=== PATIENT | female | born 1955 | race Asian ===

== ENCOUNTER 2023-01-04 16:01 | Inpatient (IN) | payer OTHER, MEDICAID ==
[~2023-01-04] VITALS: Ht 167.6 cm; Wt 56.8 kg
[2023-01-04] MEDS: ENOXAPARIN SODIUM 100 MG/ML SYRINGE SUBCUT SCH (03:20)
[2023-01-04] MEDS: MAGNESIUM OXIDE 400 MG TABLET PO SCH (03:22)
[2023-01-04 16:01] VITALS: BP_SYST 116
[2023-01-04] MEDS ORDERED: ACETAMINOPHEN 500 MG TABLET PO ONE (16:30)
[2023-01-04] MEDS ORDERED: IPRATROPIUM BROM 0.5 MG/2.5 ML VIAL.NEB (ATROVENT) INH ONE ×2 (17:09→17:15)
[2023-01-04] MEDS ORDERED: ALBUTEROL SULFATE 0.083% 2.5 MG/3 ML VIAL.NEB INH ONE ×2 (17:09→17:15)
[2023-01-04 17:39] LABS: BASOPHILS % (AUTO) 0.1 % (0.0-2.0); HEMATOCRIT 34.5 % (36-48); HEMOGLOBIN 11.4 g/dL (12.0-16.0); LYMPHOCYTES # (AUTO) 0.1 K/uL (1.0-5.5); LYMPHOCYTES % (AUTO) 1.1 % (20.5-51.5); MEAN CORPUSCULAR HEMOGLOBIN 28 pg (27-31); MEAN CORPUSCULAR HGB CONC 33 % (32-36); MEAN CORPUSCULAR VOLUME 86 fL (79.0-98.0); MONOCYTES # (AUTO) 0.4 K/uL (0.0-1.0); MONOCYTES % (AUTO) 3.3 % (1.7-9.3); NEUTROPHILS # (AUTO) 12.8 K/uL (1.8-7.7); NEUTROPHILS % (AUTO) 95.5 % (40.0-70.0); PLATELET COUNT (AUTO) 165 K/uL (130-430); RED BLOOD CELL COUNT(AUTO) 4.02 MIL/uL (4.2-6.2); RED CELL DISTRIBUTION WIDTH 14.9 % (9.0-15.0); WHITE BLOOD COUNT (AUTO) 13.4 K/uL (4.8-10.8)
[2023-01-04 17:51] LABS: ANION GAP 5 (5-15); CHLORIDE 101 mmol/L (98-107); CREATININE 0.82 mg/dL (0.55-1.30); GFR AFRICAN AMERICAN 89 mL/min (>90); GLUCOSE 145 mg/dL (70-99); INR 1.3 (0.8-1.2); PROTHROMBIN TIME 13.2 SECS (9.5-12.5); UREA NITROGEN, BLOOD 21 mg/dL (8-21)
[2023-01-04 17:58] LABS: ALANINE AMINOTRANSFERASE 24 U/L (12-78); ALBUMIN 2.8 g/dL (3.4-4.8); ASPARTATE AMINOTRANSFERASE 30 U/L (10-37); TOTAL BILIRUBIN 0.5 mg/dL (0.0-1.0)
[2023-01-04] MEDS ORDERED: PIPERACILLIN/TAZO 3.375 GM in NS 50 ML IV ONE (18:30)
[2023-01-04] MEDS ORDERED: PIPERACILLIN/TAZOBACTAM 3.375 GM/VIAL (ZOSYN) IV ONE (18:33)
[2023-01-04] MEDS ORDERED: ASPIRIN 325 MG TABLET PO ONE (19:30)
[2023-01-04] MEDS ORDERED: AZITHROMYCIN 500 MG in NS 250 ML IV ONE (21:30)
[2023-01-04] MEDS ORDERED: DEXAMETHASONE SOD PHOSPHATE 10 MG/ML VIAL IVP ONE (21:30)
[2023-01-04] MEDS ORDERED: HEPARIN SODIUM,PORCINE 5,000 UNITS/ML VIAL SUBCUT SCH (23:15)
[2023-01-04] MEDS ORDERED: ACETAMINOPHEN 325 MG TABLET PO PRN (23:30)
[2023-01-04] MEDS ORDERED: FAMOTIDINE 20 MG TABLET PO ONE (23:30)
[2023-01-05] VITALS (9 sets, daily range): BP systolic 100–137
[2023-01-05] MEDS: DEXAMETHASONE SOD PHOSPHATE 10 MG/ML VIAL IVP SCH ×2 (02:23→23:07)
[2023-01-05] MEDS ORDERED: IPRATROPIUM/ALBUTEROL SULFATE 3 ML AMPUL.NEB (DUONEB) INH SCH (03:00)
[2023-01-05] MEDS ORDERED: AZITHROMYCIN 500 MG/VIAL (ZITHROMAX) IV ONE (03:21)
[2023-01-05] MEDS ORDERED: PIPERACILLIN/TAZOBACTAM 3.375 GM/VIAL (ZOSYN) IV ONE (03:21)
[2023-01-05] MEDS: AZITHROMYCIN 500 MG in NS 250 ML IV SCH ×2 (04:09→23:07)
[2023-01-05 05:39] LABS: HEMATOCRIT 31.4 % (36-48); HEMOGLOBIN 10.4 g/dL (12.0-16.0); LYMPHOCYTES # (AUTO) 0.3 K/uL (1.0-5.5); LYMPHOCYTES % (AUTO) 4.9 % (20.5-51.5); MEAN CORPUSCULAR HEMOGLOBIN 28 pg (27-31); MEAN CORPUSCULAR HGB CONC 33 % (32-36); MEAN CORPUSCULAR VOLUME 85 fL (79.0-98.0); MONOCYTES # (AUTO) 0.2 K/uL (0.0-1.0); MONOCYTES % (AUTO) 3.3 % (1.7-9.3); NEUTROPHILS # (AUTO) 5.7 K/uL (1.8-7.7); NEUTROPHILS % (AUTO) 91.8 % (40.0-70.0); PLATELET COUNT (AUTO) 135 K/uL (130-430); RED BLOOD CELL COUNT(AUTO) 3.68 MIL/uL (4.2-6.2); RED CELL DISTRIBUTION WIDTH 14.8 % (9.0-15.0); WHITE BLOOD COUNT (AUTO) 6.2 K/uL (4.8-10.8)
[2023-01-05] MEDS: PIPERACILLIN/TAZO 3.375/DEX-IS 50 ML IV SCH ×4 (07:01→23:51)
[2023-01-05] MEDS: ALBUTEROL MDI INHALATION 8 GM INH INH SCH ×4 (08:07→23:03)
[2023-01-05 08:28] LABS: ALBUMIN 2.3 g/dL (3.4-4.8); CALCIUM 7.9 mg/dL (8.4-11.0); CREATININE 0.58 mg/dL (0.55-1.30); TOTAL BILIRUBIN 0.4 mg/dL (0.0-1.0)
[2023-01-05] MEDS: ASPIRIN 81 MG TABLET(ECOTRIN) PO SCH (09:00)
[2023-01-05] MEDS: ENOXAPARIN SODIUM 100 MG/ML SYRINGE SUBCUT SCH ×2 (09:19→20:13)
[2023-01-05] MEDS: MAGNESIUM OXIDE 400 MG TABLET PO SCH ×2 (09:20→20:12)
[2023-01-05] MEDS: FAMOTIDINE 20 MG TABLET PO SCH ×2 (09:29→20:12)
[2023-01-05] MEDS: SILDENAFIL CITRATE 20 MG TABLET PO SCH ×3 (09:29→20:12)
[2023-01-05] MEDS: ASCORBIC ACID 500 MG TABLET PO SCH ×2 (09:30→20:12)
[2023-01-05] MEDS: CHOLECALCIFEROL (VITAMIN D3) 5,000 UNIT TABLET PO SCH (09:30)
[2023-01-05] MEDS ORDERED: OMEP20CA15 PO (12:19)
[2023-01-05] MEDS ORDERED: SULF1TAB47 PO (12:19)
[2023-01-05] MEDS ORDERED: APIX5TAB PO (13:57)
[2023-01-05] MEDS ORDERED: PRED5TAB PO (14:01)
[2023-01-05] MEDS ORDERED: TADA20TA PO (14:01)
[2023-01-05] MEDS ORDERED: AUG875 PO (14:03)
[2023-01-05] MEDS: ACETAMINOPHEN 325 MG TABLET PO PRN ×2 (15:56→22:58)
[2023-01-05 21:23] LABS: BILIRUBIN,URINE NEGATIVE (NEGATIVE); BLOOD, URINE NEGATIVE (NEGATIVE); CLARITY/URINE CLEAR (CLEAR); COLOR,URINE YELLOW (YELLOW); GLUCOSE,URINE NEGATIVE (NEGATIVE); KETONES,URINE TRACE (NEGATIVE); LEUKOCYTE ESTERASE ,URINE NEGATIVE (NEGATIVE); NITRITE, URINE NEGATIVE (NEGATIVE); PROTEIN URINE 1+ (NEGATIVE); UROBILINOGEN,URINE 0.2 (0.2-1.0)
[2023-01-05 21:30] LABS: BACTERIA,URINE FEW /HPF (None Seen); MUCUS,URINE None Seen /LPF (None Seen); RBC,URINE 0-3 /HPF (0-3); WBC,URINE 0-3 /HPF (0-3)
[2023-01-06] VITALS (24 sets, daily range): BP systolic 89–152
[2023-01-06] MEDS ORDERED: METHYLPREDNISOLONE SOD SUCC 40 MG/ML VIAL IVP ONE (00:40)
[2023-01-06] MEDS ORDERED: CEFEPIME 2 GM in D5W 100 ML IV ONE (00:45)
[2023-01-06] MEDS ORDERED: FUROSEMIDE 20 MG/2 ML VIAL IVP ONE ×2 (00:45→10:45)
[2023-01-06] MEDS ORDERED: VANCOMYCIN HCL 1 GM/NS PREMIX 250 ML IV ONE (00:45)
[2023-01-06] MEDS ORDERED: CEFEPIME 2 GM/VIAL (MAXIPIME) ONE (00:59)
[2023-01-06] MEDS ORDERED: VANCOMYCIN HCL 1000 MG/VIAL IV ONE (00:59)
[2023-01-06 02:35] LABS: BILIRUBIN,URINE NEGATIVE (NEGATIVE); CLARITY/URINE CLEAR (CLEAR); COLOR,URINE YELLOW (YELLOW); GLUCOSE,URINE NEGATIVE (NEGATIVE); KETONES,URINE NEGATIVE (NEGATIVE); LEUKOCYTE ESTERASE ,URINE NEGATIVE (NEGATIVE); NITRITE, URINE NEGATIVE (NEGATIVE); PROTEIN URINE TRACE (NEGATIVE); UROBILINOGEN,URINE 0.2 (0.2-1.0)
[2023-01-06 02:36] LABS: BLOOD, URINE TRACE (NEGATIVE)
[2023-01-06 02:43] LABS: URINE SULFO SALICYLIC ACID TRACE (NEGATIVE)
[2023-01-06] MEDS: ALBUTEROL MDI INHALATION 8 GM INH INH SCH ×7 (02:43→22:53)
[2023-01-06 05:22] LABS: BASOPHILS % (AUTO) 0.1 % (0.0-2.0); HEMATOCRIT 31.1 % (36-48); HEMOGLOBIN 10.4 g/dL (12.0-16.0); LYMPHOCYTES # (AUTO) 0.1 K/uL (1.0-5.5); MEAN CORPUSCULAR HEMOGLOBIN 29 pg (27-31); MEAN CORPUSCULAR HGB CONC 33 % (32-36); MEAN CORPUSCULAR VOLUME 86 fL (79.0-98.0); MONOCYTES # (AUTO) 0.2 K/uL (0.0-1.0); MONOCYTES % (AUTO) 1.9 % (1.7-9.3); NEUTROPHILS # (AUTO) 8.9 K/uL (1.8-7.7); PLATELET COUNT (AUTO) 167 K/uL (130-430); RED BLOOD CELL COUNT(AUTO) 3.63 MIL/uL (4.2-6.2); RED CELL DISTRIBUTION WIDTH 15.2 % (9.0-15.0); WHITE BLOOD COUNT (AUTO) 9.2 K/uL (4.8-10.8)
[2023-01-06 06:04] LABS: ALBUMIN 2.4 g/dL (3.4-4.8); CALCIUM 8.2 mg/dL (8.4-11.0); CREATININE 0.74 mg/dL (0.55-1.30); THYROID STIMULATING HORMONE 1.07 uIu/mL (0.34-4.82); TOTAL BILIRUBIN 0.6 mg/dL (0.0-1.0)
[2023-01-06 07:06] LABS: INR 1.1 (0.8-1.2)
[2023-01-06] MEDS ORDERED: iohexoL 350 mgI/mL, 100 ML INFUS..BTL IV ONE (07:41)
[2023-01-06] MEDS: MEROPENEM 1 GM in NS 100 ML IV SCH ×3 (08:00→21:09)
[2023-01-06] MEDS: METHYLPREDNISOLONE SOD SUCC 40 MG/ML VIAL IVP SCH ×3 (08:25→21:09)
[2023-01-06] MEDS ORDERED: CEFEPIME 2 GM in D5W 100 ML IV SCH (09:00)
[2023-01-06] MEDS: ASPIRIN 81 MG TABLET(ECOTRIN) PO SCH (09:14)
[2023-01-06] MEDS: FAMOTIDINE 20 MG TABLET PO SCH ×2 (09:14→21:08)
[2023-01-06] MEDS: SILDENAFIL CITRATE 20 MG TABLET PO SCH ×3 (09:14→21:08)
[2023-01-06] MEDS: MAGNESIUM OXIDE 400 MG TABLET PO SCH ×2 (09:14→21:07)
[2023-01-06] MEDS: CHOLECALCIFEROL (VITAMIN D3) 5,000 UNIT TABLET PO SCH (09:14)
[2023-01-06] MEDS: ENOXAPARIN SODIUM 100 MG/ML SYRINGE SUBCUT SCH ×2 (09:14→21:09)
[2023-01-06] MEDS: ASCORBIC ACID 500 MG TABLET PO SCH ×2 (09:14→21:08)
[2023-01-06] MEDS ORDERED: BARICITINIB -Non-Formulary 2 MG TABLET PO ONE (16:00)
[2023-01-06] MEDS: VANCOMYCIN HCL 500 MG in NS 100 ML IV SCH (17:12)
[2023-01-07] VITALS (21 sets, daily range): BP systolic 96–121
[2023-01-07] MEDS: ALBUTEROL MDI INHALATION 8 GM INH INH SCH ×6 (03:30→20:02)
[2023-01-07 05:16] LABS: BASOPHILS % (AUTO) 0.1 % (0.0-2.0); HEMATOCRIT 32.2 % (36-48); HEMOGLOBIN 10.7 g/dL (12.0-16.0); LYMPHOCYTES # (AUTO) 0.7 K/uL (1.0-5.5); LYMPHOCYTES % (AUTO) 8.6 % (20.5-51.5); MEAN CORPUSCULAR HEMOGLOBIN 29 pg (27-31); MEAN CORPUSCULAR HGB CONC 33 % (32-36); MEAN CORPUSCULAR VOLUME 85 fL (79.0-98.0); MONOCYTES # (AUTO) 0.3 K/uL (0.0-1.0); MONOCYTES % (AUTO) 3.3 % (1.7-9.3); NEUTROPHILS # (AUTO) 6.8 K/uL (1.8-7.7); PLATELET COUNT (AUTO) 171 K/uL (130-430); RED BLOOD CELL COUNT(AUTO) 3.77 MIL/uL (4.2-6.2); RED CELL DISTRIBUTION WIDTH 14.8 % (9.0-15.0); WHITE BLOOD COUNT (AUTO) 7.8 K/uL (4.8-10.8)
[2023-01-07 05:22] LABS: CALCIUM 8.2 mg/dL (8.4-11.0); CREATININE 0.59 mg/dL (0.55-1.30)
[2023-01-07 05:29] LABS: ALBUMIN 2.2 g/dL (3.4-4.8); TOTAL BILIRUBIN 0.5 mg/dL (0.0-1.0)
[2023-01-07] MEDS: MEROPENEM 1 GM in NS 100 ML IV SCH ×3 (06:05→21:47)
[2023-01-07] MEDS: VANCOMYCIN HCL 500 MG in NS 100 ML IV SCH ×2 (06:05→16:18)
[2023-01-07] MEDS: METHYLPREDNISOLONE SOD SUCC 40 MG/ML VIAL IVP SCH ×3 (06:06→21:47)
[2023-01-07] MEDS: MAGNESIUM OXIDE 400 MG TABLET PO SCH ×2 (10:39→21:48)
[2023-01-07] MEDS: ASPIRIN 81 MG TABLET(ECOTRIN) PO SCH (10:39)
[2023-01-07] MEDS: SILDENAFIL CITRATE 20 MG TABLET PO SCH ×3 (10:41→21:48)
[2023-01-07] MEDS: FAMOTIDINE 20 MG TABLET PO SCH ×2 (10:41→21:48)
[2023-01-07] MEDS: BARICITINIB -Non-Formulary 2 MG TABLET PO SCH (10:41)
[2023-01-07] MEDS: ASCORBIC ACID 500 MG TABLET PO SCH ×2 (10:42→21:48)
[2023-01-07] MEDS: CHOLECALCIFEROL (VITAMIN D3) 5,000 UNIT TABLET PO SCH (10:47)
[2023-01-07] MEDS: ENOXAPARIN SODIUM 100 MG/ML SYRINGE SUBCUT SCH ×2 (10:48→21:00)
[2023-01-07] MEDS ORDERED: MEGESTROL ACETATE 400 MG/10 ML UDC PO ONE (14:45)
[2023-01-07] MEDS ORDERED: POTASSIUM CHLORIDE 20 MEQ TAB.PRT.SR PO ONE (14:45)
[2023-01-07] MEDS ORDERED: MULTIVITS,CA,MINERALS/IRON/FA 1 TABLET PO ONE (15:15)
[2023-01-07] MEDS: MIRTAZAPINE 15 MG TABLET PO SCH (21:00)
[2023-01-07] MEDS: DOXYCYCLINE HYCLATE 100 MG CAPSULE PO SCH (21:55)
[2023-01-08] VITALS (21 sets, daily range): BP systolic 105–141
[2023-01-08] MEDS: ALBUTEROL MDI INHALATION 8 GM INH INH SCH ×6 (04:07→23:30)
[2023-01-08 05:31] LABS: BASOPHILS % (AUTO) 0.1 % (0.0-2.0); HEMATOCRIT 30.2 % (36-48); HEMOGLOBIN 10.1 g/dL (12.0-16.0); LYMPHOCYTES # (AUTO) 0.5 K/uL (1.0-5.5); LYMPHOCYTES % (AUTO) 7.8 % (20.5-51.5); MEAN CORPUSCULAR HEMOGLOBIN 29 pg (27-31); MEAN CORPUSCULAR HGB CONC 34 % (32-36); MEAN CORPUSCULAR VOLUME 86 fL (79.0-98.0); MONOCYTES # (AUTO) 0.2 K/uL (0.0-1.0); MONOCYTES % (AUTO) 3.4 % (1.7-9.3); NEUTROPHILS # (AUTO) 5.5 K/uL (1.8-7.7); NEUTROPHILS % (AUTO) 88.7 % (40.0-70.0); PLATELET COUNT (AUTO) 189 K/uL (130-430); RED BLOOD CELL COUNT(AUTO) 3.52 MIL/uL (4.2-6.2); RED CELL DISTRIBUTION WIDTH 14.9 % (9.0-15.0); WHITE BLOOD COUNT (AUTO) 6.2 K/uL (4.8-10.8)
[2023-01-08 06:00] LABS: ALBUMIN 2.1 g/dL (3.4-4.8); CALCIUM 7.9 mg/dL (8.4-11.0); CREATININE 0.59 mg/dL (0.55-1.30); TOTAL BILIRUBIN 0.4 mg/dL (0.0-1.0)
[2023-01-08] MEDS: VANCOMYCIN HCL 500 MG in NS 100 ML IV SCH (06:00)
[2023-01-08] MEDS: METHYLPREDNISOLONE SOD SUCC 40 MG/ML VIAL IVP SCH ×3 (06:08→22:24)
[2023-01-08] MEDS: MEROPENEM 1 GM in NS 100 ML IV SCH ×3 (06:09→22:24)
[2023-01-08] MEDS: ASPIRIN 81 MG TABLET(ECOTRIN) PO SCH (08:57)
[2023-01-08] MEDS: ASCORBIC ACID 500 MG TABLET PO SCH ×2 (08:57→22:21)
[2023-01-08] MEDS: DOXYCYCLINE HYCLATE 100 MG CAPSULE PO SCH ×2 (08:57→22:21)
[2023-01-08] MEDS: SILDENAFIL CITRATE 20 MG TABLET PO SCH ×3 (08:58→22:20)
[2023-01-08] MEDS: FAMOTIDINE 20 MG TABLET PO SCH ×2 (08:58→22:21)
[2023-01-08] MEDS: POTASSIUM CHLORIDE 20 MEQ TAB.PRT.SR PO SCH (08:58)
[2023-01-08] MEDS: MEGESTROL ACETATE 400 MG/10 ML UDC PO SCH (08:58)
[2023-01-08] MEDS: ENOXAPARIN SODIUM 100 MG/ML SYRINGE SUBCUT SCH (08:59)
[2023-01-08] MEDS: MAGNESIUM OXIDE 400 MG TABLET PO SCH ×2 (08:59→22:21)
[2023-01-08] MEDS: BARICITINIB -Non-Formulary 2 MG TABLET PO SCH (09:08)
[2023-01-08] MEDS: MULTIVITS,CA,MINERALS/IRON/FA 1 TABLET PO SCH (09:08)
[2023-01-08] MEDS: CHOLECALCIFEROL (VITAMIN D3) 5,000 UNIT TABLET PO SCH (09:09)
[2023-01-08] MEDS: MIRTAZAPINE 15 MG TABLET PO SCH (22:20)
[2023-01-08] MEDS: ENOXAPARIN SODIUM 60 MG/0.6 ML SYRINGE SUBCUT SCH (22:20)
[2023-01-09] MEDS ORDERED: MIRTAZAPINE 15 MG TABLET PO ONE
[2023-01-09 01:23] VITALS: BP_SYST 122
[2023-01-09] MEDS: ALBUTEROL MDI INHALATION 8 GM INH INH SCH ×6 (03:00→23:30)
[2023-01-09] MEDS: MEROPENEM 1 GM in NS 100 ML IV SCH ×3 (05:40→21:36)
[2023-01-09] MEDS: METHYLPREDNISOLONE SOD SUCC 40 MG/ML VIAL IVP SCH ×3 (05:41→21:40)
[2023-01-09 06:01] LABS: BASOPHILS % (AUTO) 0.5 % (0.0-2.0); HEMATOCRIT 31.5 % (36-48); HEMOGLOBIN 10.5 g/dL (12.0-16.0); LYMPHOCYTES # (AUTO) 0.5 K/uL (1.0-5.5); LYMPHOCYTES % (AUTO) 5.6 % (20.5-51.5); MEAN CORPUSCULAR HEMOGLOBIN 29 pg (27-31); MEAN CORPUSCULAR HGB CONC 33 % (32-36); MEAN CORPUSCULAR VOLUME 86 fL (79.0-98.0); MONOCYTES # (AUTO) 0.2 K/uL (0.0-1.0); NEUTROPHILS # (AUTO) 7.6 K/uL (1.8-7.7); NEUTROPHILS % (AUTO) 90.9 % (40.0-70.0); PLATELET COUNT (AUTO) 219 K/uL (130-430); RED BLOOD CELL COUNT(AUTO) 3.66 MIL/uL (4.2-6.2); RED CELL DISTRIBUTION WIDTH 15.1 % (9.0-15.0); WHITE BLOOD COUNT (AUTO) 8.3 K/uL (4.8-10.8)
[2023-01-09 06:19] LABS: ALBUMIN 2.1 g/dL (3.4-4.8); CALCIUM 8.1 mg/dL (8.4-11.0); CREATININE 0.52 mg/dL (0.55-1.30); TOTAL BILIRUBIN 0.4 mg/dL (0.0-1.0)
[2023-01-09 06:30] LABS: TOTAL IRON BIND. CAPACITY 188 ug/dL (250-450)
[2023-01-09 08:45] VITALS: BP_SYST 132
[2023-01-09] MEDS: MEGESTROL ACETATE 400 MG/10 ML UDC PO SCH (09:06)
[2023-01-09] MEDS: MAGNESIUM OXIDE 400 MG TABLET PO SCH ×2 (09:07→21:36)
[2023-01-09] MEDS: ASPIRIN 81 MG TABLET(ECOTRIN) PO SCH (09:07)
[2023-01-09] MEDS: FAMOTIDINE 20 MG TABLET PO SCH ×2 (09:08→21:36)
[2023-01-09] MEDS: CHOLECALCIFEROL (VITAMIN D3) 5,000 UNIT TABLET PO SCH (09:08)
[2023-01-09] MEDS: SILDENAFIL CITRATE 20 MG TABLET PO SCH ×3 (09:08→21:36)
[2023-01-09] MEDS: POTASSIUM CHLORIDE 20 MEQ TAB.PRT.SR PO SCH (09:08)
[2023-01-09] MEDS: ASCORBIC ACID 500 MG TABLET PO SCH ×2 (09:09→21:36)
[2023-01-09] MEDS: DOXYCYCLINE HYCLATE 100 MG CAPSULE PO SCH ×2 (09:09→21:36)
[2023-01-09] MEDS: MULTIVITS,CA,MINERALS/IRON/FA 1 TABLET PO SCH (09:09)
[2023-01-09] MEDS: ENOXAPARIN SODIUM 60 MG/0.6 ML SYRINGE SUBCUT SCH ×2 (09:11→21:36)
[2023-01-09] MEDS: BARICITINIB -Non-Formulary 2 MG TABLET PO SCH (09:24)
[2023-01-09 12:00] VITALS: BP_SYST 121
[2023-01-09 18:24] VITALS: BP_SYST 126
[2023-01-09 20:00] VITALS: BP_SYST 122
[2023-01-09] MEDS: MIRTAZAPINE 15 MG TABLET PO SCH (21:40)
[2023-01-10] VITALS (7 sets, daily range): BP systolic 125–132
[2023-01-10] MEDS: ALBUTEROL MDI INHALATION 8 GM INH INH SCH ×6 (03:27→23:15)
[2023-01-10] MEDS: METHYLPREDNISOLONE SOD SUCC 40 MG/ML VIAL IVP SCH ×3 (05:42→21:09)
[2023-01-10] MEDS: MEROPENEM 1 GM in NS 100 ML IV SCH ×3 (05:42→21:09)
[2023-01-10 06:30] LABS: BASOPHILS % (AUTO) 0.1 % (0.0-2.0); HEMATOCRIT 33.8 % (36-48); LYMPHOCYTES # (AUTO) 0.4 K/uL (1.0-5.5); LYMPHOCYTES % (AUTO) 3.6 % (20.5-51.5); MEAN CORPUSCULAR HEMOGLOBIN 28 pg (27-31); MEAN CORPUSCULAR HGB CONC 33 % (32-36); MEAN CORPUSCULAR VOLUME 87 fL (79.0-98.0); MONOCYTES # (AUTO) 0.4 K/uL (0.0-1.0); MONOCYTES % (AUTO) 3.5 % (1.7-9.3); NEUTROPHILS # (AUTO) 10.1 K/uL (1.8-7.7); NEUTROPHILS % (AUTO) 92.8 % (40.0-70.0); PLATELET COUNT (AUTO) 238 K/uL (130-430); RED BLOOD CELL COUNT(AUTO) 3.87 MIL/uL (4.2-6.2); RED CELL DISTRIBUTION WIDTH 15.3 % (9.0-15.0); WHITE BLOOD COUNT (AUTO) 10.9 K/uL (4.8-10.8)
[2023-01-10 06:50] LABS: ALBUMIN 2.2 g/dL (3.4-4.8); CALCIUM 8.1 mg/dL (8.4-11.0); CREATININE 0.54 mg/dL (0.55-1.30); TOTAL BILIRUBIN 0.4 mg/dL (0.0-1.0)
[2023-01-10] MEDS: ENOXAPARIN SODIUM 60 MG/0.6 ML SYRINGE SUBCUT SCH ×2 (09:14→21:09)
[2023-01-10] MEDS: MAGNESIUM OXIDE 400 MG TABLET PO SCH ×2 (09:14→21:10)
[2023-01-10] MEDS: MEGESTROL ACETATE 400 MG/10 ML UDC PO SCH (09:14)
[2023-01-10] MEDS: POTASSIUM CHLORIDE 20 MEQ TAB.PRT.SR PO SCH (09:15)
[2023-01-10] MEDS: MULTIVITS,CA,MINERALS/IRON/FA 1 TABLET PO SCH (09:15)
[2023-01-10] MEDS: DOXYCYCLINE HYCLATE 100 MG CAPSULE PO SCH ×2 (09:15→21:10)
[2023-01-10] MEDS: CHOLECALCIFEROL (VITAMIN D3) 5,000 UNIT TABLET PO SCH (09:16)
[2023-01-10] MEDS: ASCORBIC ACID 500 MG TABLET PO SCH ×2 (09:16→21:10)
[2023-01-10] MEDS: SILDENAFIL CITRATE 20 MG TABLET PO SCH ×3 (09:16→21:10)
[2023-01-10] MEDS: FAMOTIDINE 20 MG TABLET PO SCH ×2 (09:16→21:10)
[2023-01-10] MEDS: BARICITINIB -Non-Formulary 2 MG TABLET PO SCH (09:17)
[2023-01-10] MEDS: ASPIRIN 81 MG TABLET(ECOTRIN) PO SCH (09:17)
[2023-01-10] MEDS: MIRTAZAPINE 15 MG TABLET PO SCH (21:10)
[2023-01-11 01:45] VITALS: BP_SYST 122
[2023-01-11] MEDS: ALBUTEROL MDI INHALATION 8 GM INH INH SCH ×6 (03:48→23:07)
[2023-01-11] MEDS: METHYLPREDNISOLONE SOD SUCC 40 MG/ML VIAL IVP SCH ×2 (05:07→17:56)
[2023-01-11] MEDS: MEROPENEM 1 GM in NS 100 ML IV SCH ×3 (05:08→22:01)
[2023-01-11 08:57] VITALS: BP_SYST 115
[2023-01-11] MEDS: ENOXAPARIN SODIUM 60 MG/0.6 ML SYRINGE SUBCUT SCH ×2 (09:02→22:00)
[2023-01-11] MEDS: MEGESTROL ACETATE 400 MG/10 ML UDC PO SCH (09:02)
[2023-01-11] MEDS: MAGNESIUM OXIDE 400 MG TABLET PO SCH ×2 (09:02→21:59)
[2023-01-11] MEDS: ASPIRIN 81 MG TABLET(ECOTRIN) PO SCH (09:03)
[2023-01-11] MEDS: CHOLECALCIFEROL (VITAMIN D3) 5,000 UNIT TABLET PO SCH (09:03)
[2023-01-11] MEDS: POTASSIUM CHLORIDE 20 MEQ TAB.PRT.SR PO SCH (09:03)
[2023-01-11] MEDS: FAMOTIDINE 20 MG TABLET PO SCH ×2 (09:04→21:59)
[2023-01-11] MEDS: DOXYCYCLINE HYCLATE 100 MG CAPSULE PO SCH ×2 (09:04→22:00)
[2023-01-11] MEDS: MULTIVITS,CA,MINERALS/IRON/FA 1 TABLET PO SCH (09:04)
[2023-01-11] MEDS: SILDENAFIL CITRATE 20 MG TABLET PO SCH ×3 (09:04→21:59)
[2023-01-11] MEDS: ASCORBIC ACID 500 MG TABLET PO SCH ×2 (09:04→22:00)
[2023-01-11] MEDS: BARICITINIB -Non-Formulary 2 MG TABLET PO SCH (09:05)
[2023-01-11 12:44] VITALS: BP_SYST 108
[2023-01-11 17:11] VITALS: BP_SYST 116
[2023-01-11 19:50] VITALS: BP_SYST 100
[2023-01-11] MEDS: MIRTAZAPINE 15 MG TABLET PO SCH (22:00)
[2023-01-12 01:28] VITALS: BP_SYST 120
[2023-01-12] MEDS: ALBUTEROL MDI INHALATION 8 GM INH INH SCH ×5 (03:05→23:04)
[2023-01-12] MEDS: METHYLPREDNISOLONE SOD SUCC 40 MG/ML VIAL IVP SCH (06:15)
[2023-01-12] MEDS: MEROPENEM 1 GM in NS 100 ML IV SCH ×3 (06:15→22:05)
[2023-01-12 08:00] VITALS: BP_SYST 129
[2023-01-12] MEDS: FAMOTIDINE 20 MG TABLET PO SCH ×2 (08:23→22:03)
[2023-01-12] MEDS: BARICITINIB -Non-Formulary 2 MG TABLET PO SCH (08:25)
[2023-01-12] MEDS: ASPIRIN 81 MG TABLET(ECOTRIN) PO SCH (08:25)
[2023-01-12] MEDS: ENOXAPARIN SODIUM 60 MG/0.6 ML SYRINGE SUBCUT SCH ×2 (08:25→22:07)
[2023-01-12] MEDS: MULTIVITS,CA,MINERALS/IRON/FA 1 TABLET PO SCH (08:26)
[2023-01-12] MEDS: MAGNESIUM OXIDE 400 MG TABLET PO SCH ×2 (08:26→22:04)
[2023-01-12] MEDS: MEGESTROL ACETATE 400 MG/10 ML UDC PO SCH (08:26)
[2023-01-12] MEDS: POTASSIUM CHLORIDE 20 MEQ TAB.PRT.SR PO SCH (08:26)
[2023-01-12] MEDS: CHOLECALCIFEROL (VITAMIN D3) 5,000 UNIT TABLET PO SCH (08:27)
[2023-01-12] MEDS: ASCORBIC ACID 500 MG TABLET PO SCH ×2 (08:27→22:02)
[2023-01-12] MEDS: DOXYCYCLINE HYCLATE 100 MG CAPSULE PO SCH ×2 (08:28→22:02)
[2023-01-12] MEDS: SILDENAFIL CITRATE 20 MG TABLET PO SCH ×3 (08:28→22:02)
[2023-01-12 12:00] VITALS: BP_SYST 112
[2023-01-12 13:05] LABS: HEMATOCRIT 35.9 % (36-48); HEMOGLOBIN 11.7 g/dL (12.0-16.0); LYMPHOCYTES # (AUTO) 0.4 K/uL (1.0-5.5); LYMPHOCYTES % (AUTO) 2.1 % (20.5-51.5); MEAN CORPUSCULAR HEMOGLOBIN 29 pg (27-31); MEAN CORPUSCULAR HGB CONC 33 % (32-36); MEAN CORPUSCULAR VOLUME 88 fL (79.0-98.0); MONOCYTES # (AUTO) 0.4 K/uL (0.0-1.0); MONOCYTES % (AUTO) 1.8 % (1.7-9.3); NEUTROPHILS # (AUTO) 19.7 K/uL (1.8-7.7); NEUTROPHILS % (AUTO) 96.1 % (40.0-70.0); PLATELET COUNT (AUTO) 308 K/uL (130-430); RED BLOOD CELL COUNT(AUTO) 4.09 MIL/uL (4.2-6.2); RED CELL DISTRIBUTION WIDTH 15.6 % (9.0-15.0); WHITE BLOOD COUNT (AUTO) 20.5 K/uL (4.8-10.8)
[2023-01-12 13:17] LABS: CALCIUM 8.5 mg/dL (8.4-11.0); CREATININE 0.73 mg/dL (0.55-1.30)
[2023-01-12 13:22] LABS: ALBUMIN 2.8 g/dL (3.4-4.8); TOTAL BILIRUBIN 0.6 mg/dL (0.0-1.0)
[2023-01-12 16:00] VITALS: BP_SYST 116
[2023-01-12 20:00] VITALS: BP_SYST 113
[2023-01-12] MEDS: predniSONE 20 MG TABLET PO SCH (22:02)
[2023-01-12] MEDS: MIRTAZAPINE 15 MG TABLET PO SCH (22:03)
[2023-01-13 00:19] VITALS: BP_SYST 103
[2023-01-13] MEDS: ALBUTEROL MDI INHALATION 8 GM INH INH SCH ×6 (03:04→23:11)
[2023-01-13] MEDS: MEROPENEM 1 GM in NS 100 ML IV SCH ×3 (06:18→22:06)
[2023-01-13 08:00] VITALS: BP_SYST 136
[2023-01-13] MEDS: MEGESTROL ACETATE 400 MG/10 ML UDC PO SCH (09:01)
[2023-01-13] MEDS: CHOLECALCIFEROL (VITAMIN D3) 5,000 UNIT TABLET PO SCH (09:02)
[2023-01-13] MEDS: POTASSIUM CHLORIDE 20 MEQ TAB.PRT.SR PO SCH (09:02)
[2023-01-13] MEDS: FAMOTIDINE 20 MG TABLET PO SCH ×2 (09:02→22:10)
[2023-01-13] MEDS: ASCORBIC ACID 500 MG TABLET PO SCH ×2 (09:02→22:04)
[2023-01-13] MEDS: SILDENAFIL CITRATE 20 MG TABLET PO SCH ×3 (09:02→22:05)
[2023-01-13] MEDS: ASPIRIN 81 MG TABLET(ECOTRIN) PO SCH (09:02)
[2023-01-13] MEDS: DOXYCYCLINE HYCLATE 100 MG CAPSULE PO SCH ×2 (09:02→22:04)
[2023-01-13] MEDS: MAGNESIUM OXIDE 400 MG TABLET PO SCH ×2 (09:02→22:05)
[2023-01-13] MEDS: predniSONE 20 MG TABLET PO SCH ×2 (09:02→22:09)
[2023-01-13] MEDS: MULTIVITS,CA,MINERALS/IRON/FA 1 TABLET PO SCH (09:03)
[2023-01-13] MEDS: ENOXAPARIN SODIUM 60 MG/0.6 ML SYRINGE SUBCUT SCH ×2 (09:04→22:06)
[2023-01-13] MEDS: BARICITINIB -Non-Formulary 2 MG TABLET PO SCH (09:05)
[2023-01-13] MEDS ORDERED: FAMOTIDINE 20 MG TABLET PO ONE (11:30)
[2023-01-13 12:00] VITALS: BP_SYST 116
[2023-01-13 14:44] LABS: BASOPHILS # (AUTO) 0.1 K/uL (0.0-0.2); BASOPHILS % (AUTO) 0.5 % (0.0-2.0); HEMATOCRIT 31.2 % (36-48); HEMOGLOBIN 10.4 g/dL (12.0-16.0); LYMPHOCYTES # (AUTO) 0.2 K/uL (1.0-5.5); LYMPHOCYTES % (AUTO) 1.2 % (20.5-51.5); MEAN CORPUSCULAR HEMOGLOBIN 29 pg (27-31); MEAN CORPUSCULAR HGB CONC 33 % (32-36); MEAN CORPUSCULAR VOLUME 87 fL (79.0-98.0); MONOCYTES # (AUTO) 0.3 K/uL (0.0-1.0); MONOCYTES % (AUTO) 1.7 % (1.7-9.3); NEUTROPHILS # (AUTO) 15.9 K/uL (1.8-7.7); NEUTROPHILS % (AUTO) 96.6 % (40.0-70.0); PLATELET COUNT (AUTO) 272 K/uL (130-430); RED BLOOD CELL COUNT(AUTO) 3.58 MIL/uL (4.2-6.2); RED CELL DISTRIBUTION WIDTH 15.1 % (9.0-15.0); WHITE BLOOD COUNT (AUTO) 16.4 K/uL (4.8-10.8)
[2023-01-13 15:00] LABS: CALCIUM 7.8 mg/dL (8.4-11.0); CREATININE 0.72 mg/dL (0.55-1.30)
[2023-01-13 16:00] VITALS: BP_SYST 114
[2023-01-13] MEDS: MIRTAZAPINE 15 MG TABLET PO SCH (17:44)
[2023-01-13] MEDS: guaiFENesin/DEXTROMETHORPHAN 10 ML UDC PO PRN (17:56)
[2023-01-13 20:00] VITALS: BP_SYST 131
[2023-01-14 00:14] VITALS: BP_SYST 112
[2023-01-14] MEDS: ALBUTEROL MDI INHALATION 8 GM INH INH SCH ×5 (02:52→23:09)
[2023-01-14] MEDS: MEROPENEM 1 GM in NS 100 ML IV SCH ×3 (06:04→21:58)
[2023-01-14 08:00] VITALS: BP_SYST 122
[2023-01-14 09:03] VITALS: BP_SYST 136
[2023-01-14] MEDS: FAMOTIDINE 20 MG TABLET PO SCH ×2 (10:07→21:52)
[2023-01-14] MEDS: ASCORBIC ACID 500 MG TABLET PO SCH ×2 (10:08→21:54)
[2023-01-14] MEDS: ENOXAPARIN SODIUM 60 MG/0.6 ML SYRINGE SUBCUT SCH (10:09)
[2023-01-14] MEDS: MAGNESIUM OXIDE 400 MG TABLET PO SCH ×2 (10:09→21:52)
[2023-01-14] MEDS: MEGESTROL ACETATE 400 MG/10 ML UDC PO SCH (10:09)
[2023-01-14] MEDS: POTASSIUM CHLORIDE 20 MEQ TAB.PRT.SR PO SCH (10:10)
[2023-01-14] MEDS: ASPIRIN 81 MG TABLET(ECOTRIN) PO SCH (10:10)
[2023-01-14] MEDS: DOXYCYCLINE HYCLATE 100 MG CAPSULE PO SCH ×2 (10:10→21:53)
[2023-01-14] MEDS: predniSONE 20 MG TABLET PO SCH ×2 (10:10→22:01)
[2023-01-14] MEDS: MULTIVITS,CA,MINERALS/IRON/FA 1 TABLET PO SCH (10:10)
[2023-01-14] MEDS: CHOLECALCIFEROL (VITAMIN D3) 5,000 UNIT TABLET PO SCH (10:11)
[2023-01-14] MEDS: BARICITINIB -Non-Formulary 2 MG TABLET PO SCH (10:11)
[2023-01-14] MEDS: SILDENAFIL CITRATE 20 MG TABLET PO SCH ×3 (10:11→21:50)
[2023-01-14 12:00] VITALS: BP_SYST 105
[2023-01-14 16:00] VITALS: BP_SYST 90
[2023-01-14] MEDS: MIRTAZAPINE 15 MG TABLET PO SCH (17:57)
[2023-01-14 20:00] VITALS: BP_SYST 113
[2023-01-14] MEDS: APIXABAN 2.5 MG TABLET PO SCH (21:57)
[2023-01-15 00:23] VITALS: BP_SYST 110
[2023-01-15] MEDS: ALBUTEROL MDI INHALATION 8 GM INH INH SCH ×5 (03:52→23:26)
[2023-01-15] MEDS: MEROPENEM 1 GM in NS 100 ML IV SCH (06:13)
[2023-01-15 08:00] VITALS: BP_SYST 101
[2023-01-15] MEDS: APIXABAN 2.5 MG TABLET PO SCH ×2 (08:57→21:30)
[2023-01-15] MEDS: ASPIRIN 81 MG TABLET(ECOTRIN) PO SCH (09:11)
[2023-01-15] MEDS: FAMOTIDINE 20 MG TABLET PO SCH ×2 (09:12→21:24)
[2023-01-15] MEDS: MAGNESIUM OXIDE 400 MG TABLET PO SCH ×2 (09:12→21:24)
[2023-01-15] MEDS: SILDENAFIL CITRATE 20 MG TABLET PO SCH ×3 (09:12→21:22)
[2023-01-15] MEDS: predniSONE 20 MG TABLET PO SCH ×2 (09:12→21:21)
[2023-01-15] MEDS: ASCORBIC ACID 500 MG TABLET PO SCH ×2 (09:12→21:23)
[2023-01-15] MEDS: MEGESTROL ACETATE 400 MG/10 ML UDC PO SCH (09:12)
[2023-01-15] MEDS: DOXYCYCLINE HYCLATE 100 MG CAPSULE PO SCH (09:12)
[2023-01-15] MEDS: POTASSIUM CHLORIDE 20 MEQ TAB.PRT.SR PO SCH (09:12)
[2023-01-15] MEDS: MULTIVITS,CA,MINERALS/IRON/FA 1 TABLET PO SCH (09:12)
[2023-01-15] MEDS: BARICITINIB -Non-Formulary 2 MG TABLET PO SCH (09:12)
[2023-01-15] MEDS: CHOLECALCIFEROL (VITAMIN D3) 5,000 UNIT TABLET PO SCH (09:13)
[2023-01-15] MEDS ORDERED: levoFLOXacin 500 MG TABLET PO ONE (11:45)
[2023-01-15 12:00] VITALS: BP_SYST 95
[2023-01-15 13:03] VITALS: BP_SYST 90
[2023-01-15 16:00] VITALS: BP_SYST 90
[2023-01-15] MEDS ORDERED: MAGN400T10 PO (17:03)
[2023-01-15] MEDS ORDERED: MULT-1145 PO (17:03)
[2023-01-15] MEDS ORDERED: MIRT-114 PO (17:03)
[2023-01-15] MEDS ORDERED: ALBMDI INH (17:03)
[2023-01-15] MEDS ORDERED: IPRA3AMP9 INH (17:03)
[2023-01-15] MEDS ORDERED: MEGE400O4 PO (17:03)
[2023-01-15] MEDS ORDERED: FAMO20TA8 PO (17:03)
[2023-01-15] MEDS ORDERED: ASC500 PO (17:03)
[2023-01-15] MEDS ORDERED: PRED20TA PO (17:03)
[2023-01-15] MEDS ORDERED: CHOL500013 PO (17:03)
[2023-01-15] MEDS ORDERED: LACT1TAB14 PO (17:05)
[2023-01-15] MEDS ORDERED: LEVO-62 PO (17:05)
[2023-01-15] MEDS: MIRTAZAPINE 15 MG TABLET PO SCH (18:00)
[2023-01-15 20:00] VITALS: BP_SYST 100
[2023-01-16] VITALS: BP_SYST 101
[2023-01-16] MEDS: ALBUTEROL MDI INHALATION 8 GM INH INH SCH ×4 (02:55→23:31)
[2023-01-16 07:50] VITALS: BP_SYST 126
[2023-01-16] MEDS: ASPIRIN 81 MG TABLET(ECOTRIN) PO SCH (09:48)
[2023-01-16] MEDS: POTASSIUM CHLORIDE 20 MEQ TAB.PRT.SR PO SCH (09:51)
[2023-01-16] MEDS: SILDENAFIL CITRATE 20 MG TABLET PO SCH ×3 (09:51→20:51)
[2023-01-16] MEDS: FAMOTIDINE 20 MG TABLET PO SCH ×2 (09:52→20:51)
[2023-01-16] MEDS: MAGNESIUM OXIDE 400 MG TABLET PO SCH ×2 (09:52→20:52)
[2023-01-16] MEDS: MULTIVITS,CA,MINERALS/IRON/FA 1 TABLET PO SCH (09:53)
[2023-01-16] MEDS: CHOLECALCIFEROL (VITAMIN D3) 5,000 UNIT TABLET PO SCH (09:53)
[2023-01-16] MEDS: ASCORBIC ACID 500 MG TABLET PO SCH ×2 (09:54→20:51)
[2023-01-16] MEDS: MEGESTROL ACETATE 400 MG/10 ML UDC PO SCH (09:55)
[2023-01-16] MEDS: BARICITINIB -Non-Formulary 2 MG TABLET PO SCH (09:56)
[2023-01-16] MEDS: predniSONE 20 MG TABLET PO SCH ×2 (09:58→20:52)
[2023-01-16] MEDS: APIXABAN 2.5 MG TABLET PO SCH ×2 (10:04→20:51)
[2023-01-16] MEDS: levoFLOXacin 500 MG TABLET PO SCH (10:16)
[2023-01-16] MEDS: ACETAMINOPHEN 325 MG TABLET PO PRN (11:05)
[2023-01-16 11:30] VITALS: BP_SYST 122
[2023-01-16 16:42] VITALS: BP_SYST 100
[2023-01-16 18:34] LABS: EOSINOPHILS % (AUTO) 0.1 % (0.0-4.0); HEMATOCRIT 29.9 % (36-48); HEMOGLOBIN 9.8 g/dL (12.0-16.0); LYMPHOCYTES # (AUTO) 0.2 K/uL (1.0-5.5); MEAN CORPUSCULAR HEMOGLOBIN 29 pg (27-31); MEAN CORPUSCULAR HGB CONC 33 % (32-36); MEAN CORPUSCULAR VOLUME 89 fL (79.0-98.0); MONOCYTES # (AUTO) 0.2 K/uL (0.0-1.0); MONOCYTES % (AUTO) 1.7 % (1.7-9.3); NEUTROPHILS # (AUTO) 11.7 K/uL (1.8-7.7); NEUTROPHILS % (AUTO) 96.2 % (40.0-70.0); PLATELET COUNT (AUTO) 274 K/uL (130-430); RED BLOOD CELL COUNT(AUTO) 3.34 MIL/uL (4.2-6.2); RED CELL DISTRIBUTION WIDTH 15.6 % (9.0-15.0); WHITE BLOOD COUNT (AUTO) 12.2 K/uL (4.8-10.8)
[2023-01-16 18:50] LABS: CALCIUM 8.6 mg/dL (8.4-11.0); CREATININE 0.81 mg/dL (0.55-1.30)
[2023-01-16 19:02] LABS: ALBUMIN 2.3 g/dL (3.4-4.8); TOTAL BILIRUBIN 0.6 mg/dL (0.0-1.0)
[2023-01-16] MEDS: MIRTAZAPINE 15 MG TABLET PO SCH (19:43)
[2023-01-16 20:00] VITALS: BP_SYST 102
[2023-01-17] VITALS: BP_SYST 108
[2023-01-17] MEDS: ALBUTEROL MDI INHALATION 8 GM INH INH SCH ×6 (03:00→23:50)
[2023-01-17 08:00] VITALS: BP_SYST 130
[2023-01-17] MEDS: MULTIVITS,CA,MINERALS/IRON/FA 1 TABLET PO SCH (08:15)
[2023-01-17] MEDS: MEGESTROL ACETATE 400 MG/10 ML UDC PO SCH (08:15)
[2023-01-17] MEDS: CHOLECALCIFEROL (VITAMIN D3) 5,000 UNIT TABLET PO SCH (08:15)
[2023-01-17] MEDS: MAGNESIUM OXIDE 400 MG TABLET PO SCH ×2 (08:15→21:18)
[2023-01-17] MEDS: FAMOTIDINE 20 MG TABLET PO SCH ×2 (08:16→21:19)
[2023-01-17] MEDS: ASCORBIC ACID 500 MG TABLET PO SCH ×2 (08:16→21:23)
[2023-01-17] MEDS: ASPIRIN 81 MG TABLET(ECOTRIN) PO SCH (08:16)
[2023-01-17] MEDS: predniSONE 20 MG TABLET PO SCH ×2 (08:17→21:23)
[2023-01-17] MEDS: SILDENAFIL CITRATE 20 MG TABLET PO SCH ×3 (08:17→22:23)
[2023-01-17] MEDS: POTASSIUM CHLORIDE 20 MEQ TAB.PRT.SR PO SCH (08:17)
[2023-01-17 08:20] VITALS: BP_SYST 108
[2023-01-17] MEDS: ACETAMINOPHEN 325 MG TABLET PO PRN (08:20)
[2023-01-17] MEDS: APIXABAN 2.5 MG TABLET PO SCH ×2 (08:21→21:21)
[2023-01-17] MEDS: BARICITINIB -Non-Formulary 2 MG TABLET PO SCH (08:40)
[2023-01-17] MEDS: levoFLOXacin 500 MG TABLET PO SCH (09:17)
[2023-01-17 12:09] VITALS: BP_SYST 84
[2023-01-17] MEDS ORDERED: predniSONE 20 MG TABLET PO SCH (15:00)
[2023-01-17] MEDS ORDERED: NACL 0.9% 1,000 ML IV ONE (15:30)
[2023-01-17 16:00] VITALS: BP_SYST 89
[2023-01-17] MEDS: MIRTAZAPINE 15 MG TABLET PO SCH (17:16)
[2023-01-17] MEDS: LR 1,000 ML IV SCH (18:09)
[2023-01-17 20:00] VITALS: BP_SYST 109
[2023-01-17] MEDS: MEROPENEM 1 GM in NS 100 ML IV SCH (22:33)
[2023-01-18] VITALS: BP_SYST 100
[2023-01-18] MEDS: LR 1,000 ML IV SCH (05:13)
[2023-01-18] MEDS: MEROPENEM 1 GM in NS 100 ML IV SCH ×2 (05:37→21:42)
[2023-01-18] MEDS: ALBUTEROL MDI INHALATION 8 GM INH INH SCH ×5 (07:00→21:45)
[2023-01-18 07:33] LABS: EOSINOPHILS % (AUTO) 0.1 % (0.0-4.0); HEMATOCRIT 30.2 % (36-48); HEMOGLOBIN 9.7 g/dL (12.0-16.0); LYMPHOCYTES # (AUTO) 0.2 K/uL (1.0-5.5); LYMPHOCYTES % (AUTO) 1.4 % (20.5-51.5); MEAN CORPUSCULAR HEMOGLOBIN 29 pg (27-31); MEAN CORPUSCULAR HGB CONC 32 % (32-36); MEAN CORPUSCULAR VOLUME 91 fL (79.0-98.0); MONOCYTES # (AUTO) 0.4 K/uL (0.0-1.0); MONOCYTES % (AUTO) 3.2 % (1.7-9.3); NEUTROPHILS # (AUTO) 11.3 K/uL (1.8-7.7); NEUTROPHILS % (AUTO) 95.3 % (40.0-70.0); PLATELET COUNT (AUTO) 274 K/uL (130-430); RED BLOOD CELL COUNT(AUTO) 3.33 MIL/uL (4.2-6.2); RED CELL DISTRIBUTION WIDTH 16.6 % (9.0-15.0); WHITE BLOOD COUNT (AUTO) 11.9 K/uL (4.8-10.8)
[2023-01-18 08:00] VITALS: BP_SYST 122
[2023-01-18 09:23] LABS: ALBUMIN 2.2 g/dL (3.4-4.8); CALCIUM 8.3 mg/dL (8.4-11.0); CREATININE 0.71 mg/dL (0.55-1.30); TOTAL BILIRUBIN 0.4 mg/dL (0.0-1.0)
[2023-01-18] MEDS: MEGESTROL ACETATE 400 MG/10 ML UDC PO SCH (10:40)
[2023-01-18] MEDS: MAGNESIUM OXIDE 400 MG TABLET PO SCH ×2 (10:40→21:26)
[2023-01-18] MEDS: FAMOTIDINE 20 MG TABLET PO SCH ×2 (10:41→21:27)
[2023-01-18] MEDS: SILDENAFIL CITRATE 20 MG TABLET PO SCH ×3 (10:41→21:38)
[2023-01-18] MEDS: ASPIRIN 81 MG TABLET(ECOTRIN) PO SCH (10:41)
[2023-01-18] MEDS: CHOLECALCIFEROL (VITAMIN D3) 5,000 UNIT TABLET PO SCH (10:42)
[2023-01-18] MEDS: MULTIVITS,CA,MINERALS/IRON/FA 1 TABLET PO SCH (10:42)
[2023-01-18] MEDS: ASCORBIC ACID 500 MG TABLET PO SCH ×2 (10:42→21:28)
[2023-01-18] MEDS: predniSONE 20 MG TABLET PO SCH ×3 (10:42→21:27)
[2023-01-18] MEDS: APIXABAN 2.5 MG TABLET PO SCH ×2 (10:45→21:26)
[2023-01-18 13:00] VITALS: BP_SYST 137
[2023-01-18] MEDS ORDERED: LACTOBACILLUS RHAMNOSUS GG 1 CAP CAPSULE PO ONE (15:15)
[2023-01-18 17:19] VITALS: BP_SYST 98
[2023-01-18 20:00] VITALS: BP_SYST 111
[2023-01-18] MEDS: LACTOBACILLUS RHAMNOSUS GG 1 CAP CAPSULE PO SCH (21:27)
[2023-01-18 23:56] VITALS: BP_SYST 111
[2023-01-19] VITALS (14 sets, daily range): BP systolic 100–130
[2023-01-19] MEDS: LR 1,000 ML IV SCH ×2 (01:20→08:23)
[2023-01-19] MEDS: ALBUTEROL MDI INHALATION 8 GM INH INH SCH ×7 (04:40→23:13)
[2023-01-19] MEDS: MEROPENEM 1 GM in NS 100 ML IV SCH ×2 (06:54→13:37)
[2023-01-19] MEDS: APIXABAN 2.5 MG TABLET PO SCH ×2 (09:00→22:18)
[2023-01-19] MEDS: levoFLOXacin 500 MG TABLET PO SCH ×2 (10:00→10:05)
[2023-01-19] MEDS: EPOETIN ALFA-EPBX 4,000 UNITS/ML VIAL SUBCUT SCH (10:05)
[2023-01-19] MEDS: MULTIVITS,CA,MINERALS/IRON/FA 1 TABLET PO SCH (10:56)
[2023-01-19] MEDS: LACTOBACILLUS RHAMNOSUS GG 1 CAP CAPSULE PO SCH ×2 (10:56→22:17)
[2023-01-19] MEDS: ASPIRIN 81 MG TABLET(ECOTRIN) PO SCH (10:56)
[2023-01-19] MEDS: CHOLECALCIFEROL (VITAMIN D3) 5,000 UNIT TABLET PO SCH (10:56)
[2023-01-19] MEDS: MAGNESIUM OXIDE 400 MG TABLET PO SCH ×2 (10:56→22:19)
[2023-01-19] MEDS: MEGESTROL ACETATE 400 MG/10 ML UDC PO SCH (10:56)
[2023-01-19] MEDS: SILDENAFIL CITRATE 20 MG TABLET PO SCH ×3 (10:56→22:20)
[2023-01-19] MEDS: FAMOTIDINE 20 MG TABLET PO SCH ×2 (10:56→22:19)
[2023-01-19] MEDS: ASCORBIC ACID 500 MG TABLET PO SCH ×2 (10:57→22:21)
[2023-01-19] MEDS: predniSONE 20 MG TABLET PO SCH (10:57)
[2023-01-19 13:01] LABS: PROTHROMBIN TIME 10.4 SECS (9.5-12.5)
[2023-01-19] MEDS ORDERED: FUROSEMIDE 20 MG/2 ML VIAL IVP ONE (14:15)
[2023-01-19] MEDS: methylPREDNISolone SOD SUCC/PF 62.5 MG/ML VIAL IVP SCH ×2 (15:08→22:21)
[2023-01-19] MEDS ORDERED: HONEY WOUND DRESSING 1 EACH TP PRN (16:45)
[2023-01-19] MEDS: MIRTAZAPINE 15 MG TABLET PO SCH (18:40)
[2023-01-19] MEDS: BUDESONIDE 0.5 MG/2 ML AMPUL.NEB INH SCH (19:52)
[2023-01-19 23:23] LABS: HEMATOCRIT 30.1 % (36-48); HEMOGLOBIN 9.8 g/dL (12.0-16.0); LYMPHOCYTES # (AUTO) 0.1 K/uL (1.0-5.5); LYMPHOCYTES % (AUTO) 0.8 % (20.5-51.5); MEAN CORPUSCULAR HEMOGLOBIN 29 pg (27-31); MEAN CORPUSCULAR HGB CONC 32 % (32-36); MEAN CORPUSCULAR VOLUME 90 fL (79.0-98.0); MONOCYTES # (AUTO) 0.2 K/uL (0.0-1.0); MONOCYTES % (AUTO) 1.5 % (1.7-9.3); NEUTROPHILS # (AUTO) 12.8 K/uL (1.8-7.7); NEUTROPHILS % (AUTO) 97.7 % (40.0-70.0); PLATELET COUNT (AUTO) 245 K/uL (130-430); RED BLOOD CELL COUNT(AUTO) 3.34 MIL/uL (4.2-6.2); RED CELL DISTRIBUTION WIDTH 18.6 % (9.0-15.0); WHITE BLOOD COUNT (AUTO) 13.1 K/uL (4.8-10.8)
[2023-01-19 23:33] LABS: CALCIUM 8.2 mg/dL (8.4-11.0); CREATININE 0.74 mg/dL (0.55-1.30)
[2023-01-20] VITALS (24 sets, daily range): BP systolic 97–145
[2023-01-20] MEDS: MEROPENEM 1 GM in NS 100 ML IV SCH ×4 (00:15→21:23)
[2023-01-20] MEDS: ALBUTEROL MDI INHALATION 8 GM INH INH SCH ×6 (03:47→23:18)
[2023-01-20] MEDS: methylPREDNISolone SOD SUCC/PF 62.5 MG/ML VIAL IVP SCH ×3 (05:46→21:24)
[2023-01-20 06:17] LABS: CALCIUM 8.3 mg/dL (8.4-11.0); CREATININE 0.64 mg/dL (0.55-1.30)
[2023-01-20] MEDS: BUDESONIDE 0.5 MG/2 ML AMPUL.NEB INH SCH ×2 (07:47→20:20)
[2023-01-20 07:50] LABS: BASOPHILS % (AUTO) 0.1 % (0.0-2.0); HEMATOCRIT 27.4 % (36-48); LYMPHOCYTES # (AUTO) 0.1 K/uL (1.0-5.5); MEAN CORPUSCULAR HEMOGLOBIN 30 pg (27-31); MEAN CORPUSCULAR HGB CONC 33 % (32-36); MEAN CORPUSCULAR VOLUME 90 fL (79.0-98.0); MONOCYTES # (AUTO) 0.2 K/uL (0.0-1.0); MONOCYTES % (AUTO) 1.3 % (1.7-9.3); NEUTROPHILS # (AUTO) 11.8 K/uL (1.8-7.7); NEUTROPHILS % (AUTO) 97.6 % (40.0-70.0); PLATELET COUNT (AUTO) 215 K/uL (130-430); RED BLOOD CELL COUNT(AUTO) 3.04 MIL/uL (4.2-6.2); RED CELL DISTRIBUTION WIDTH 18.1 % (9.0-15.0); WHITE BLOOD COUNT (AUTO) 12.1 K/uL (4.8-10.8)
[2023-01-20] MEDS: IPRATROPIUM/ALBUTEROL SULFATE 3 ML AMPUL.NEB (DUONEB) INH PRN ×4 (08:27→20:28)
[2023-01-20] MEDS: ASPIRIN 81 MG TABLET(ECOTRIN) PO SCH (08:58)
[2023-01-20] MEDS: LACTOBACILLUS RHAMNOSUS GG 1 CAP CAPSULE PO SCH ×2 (08:58→20:19)
[2023-01-20] MEDS: ASCORBIC ACID 500 MG TABLET PO SCH ×2 (08:58→20:20)
[2023-01-20] MEDS: MAGNESIUM OXIDE 400 MG TABLET PO SCH ×2 (08:58→20:20)
[2023-01-20] MEDS: CHOLECALCIFEROL (VITAMIN D3) 5,000 UNIT TABLET PO SCH (08:58)
[2023-01-20] MEDS: FAMOTIDINE 20 MG TABLET PO SCH ×2 (08:58→20:20)
[2023-01-20] MEDS: SILDENAFIL CITRATE 20 MG TABLET PO SCH ×3 (08:58→20:20)
[2023-01-20] MEDS: MULTIVITS,CA,MINERALS/IRON/FA 1 TABLET PO SCH (08:59)
[2023-01-20] MEDS: APIXABAN 2.5 MG TABLET PO SCH ×2 (09:01→20:19)
[2023-01-20] MEDS: MEGESTROL ACETATE 400 MG/10 ML UDC PO SCH (09:05)
[2023-01-20] MEDS: levoFLOXacin 500 MG TABLET PO SCH (09:08)
[2023-01-20] MEDS: BALSAM PERU/CASTOR OIL 56.7 GM OINT...G. TP SCH (09:08)
[2023-01-20] MEDS: HONEY WOUND DRESSING 1 EACH TP SCH (09:09)
[2023-01-20] MEDS: MIRTAZAPINE 15 MG TABLET PO SCH (17:39)
[2023-01-20] MEDS: EPOETIN ALFA-EPBX 4,000 UNITS/ML VIAL SUBCUT SCH (17:40)
[2023-01-20] MEDS: guaiFENesin/DEXTROMETHORPHAN 10 ML UDC PO PRN (20:21)
[2023-01-20] MEDS ORDERED: METOPROLOL TARTRATE 5 MG/5 ML VIAL IVP ONE (21:30)
[2023-01-21] VITALS (25 sets, daily range): BP systolic 101–137
[2023-01-21] MEDS: ALBUTEROL MDI INHALATION 8 GM INH INH SCH ×6 (03:00→23:00)
[2023-01-21] MEDS: IPRATROPIUM/ALBUTEROL SULFATE 3 ML AMPUL.NEB (DUONEB) INH PRN ×4 (04:35→15:25)
[2023-01-21] MEDS: methylPREDNISolone SOD SUCC/PF 62.5 MG/ML VIAL IVP SCH ×3 (05:36→21:19)
[2023-01-21] MEDS: MEROPENEM 1 GM in NS 100 ML IV SCH ×3 (05:36→21:18)
[2023-01-21] MEDS: BUDESONIDE 0.5 MG/2 ML AMPUL.NEB INH SCH ×2 (07:39→19:00)
[2023-01-21] MEDS: SILDENAFIL CITRATE 20 MG TABLET PO SCH ×3 (09:53→21:18)
[2023-01-21] MEDS: MULTIVITS,CA,MINERALS/IRON/FA 1 TABLET PO SCH (09:53)
[2023-01-21] MEDS: ASCORBIC ACID 500 MG TABLET PO SCH ×2 (09:53→21:18)
[2023-01-21] MEDS: MEGESTROL ACETATE 400 MG/10 ML UDC PO SCH (09:53)
[2023-01-21] MEDS: LACTOBACILLUS RHAMNOSUS GG 1 CAP CAPSULE PO SCH ×2 (09:53→21:16)
[2023-01-21] MEDS: FAMOTIDINE 20 MG TABLET PO SCH ×2 (09:53→21:18)
[2023-01-21] MEDS: CHOLECALCIFEROL (VITAMIN D3) 5,000 UNIT TABLET PO SCH (09:53)
[2023-01-21] MEDS: ASPIRIN 81 MG TABLET(ECOTRIN) PO SCH (09:54)
[2023-01-21] MEDS: MAGNESIUM OXIDE 400 MG TABLET PO SCH ×2 (09:54→21:17)
[2023-01-21] MEDS: APIXABAN 2.5 MG TABLET PO SCH ×2 (09:56→21:17)
[2023-01-21] MEDS: levoFLOXacin 500 MG TABLET PO SCH (09:57)
[2023-01-21] MEDS: guaiFENesin/DEXTROMETHORPHAN 10 ML UDC PO PRN (09:57)
[2023-01-21] MEDS: BALSAM PERU/CASTOR OIL 56.7 GM OINT...G. TP SCH (09:58)
[2023-01-21] MEDS: HONEY WOUND DRESSING 1 EACH TP SCH (09:59)
[2023-01-21] MEDS: MIRTAZAPINE 15 MG TABLET PO SCH (18:34)
[2023-01-21] MEDS ORDERED: METOPROLOL TARTRATE 25 MG TABLET ONE (22:21)
[2023-01-21] MEDS ORDERED: LORazepam 2 MG/ML VIAL ONE (22:22)
[2023-01-21] MEDS: METOPROLOL TARTRATE 25 MG TABLET PO SCH (22:36)
[2023-01-21] MEDS: LORazepam 2 MG/ML VIAL IVP PRN (23:49)
[2023-01-22] VITALS (25 sets, daily range): BP systolic 108–165
[2023-01-22] MEDS: ALBUTEROL MDI INHALATION 8 GM INH INH SCH ×5 (03:00→23:28)
[2023-01-22 04:59] LABS: HEMATOCRIT 28.1 % (36-48); HEMOGLOBIN 9.1 g/dL (12.0-16.0); LYMPHOCYTES # (AUTO) 0.1 K/uL (1.0-5.5); MEAN CORPUSCULAR HEMOGLOBIN 29 pg (27-31); MEAN CORPUSCULAR HGB CONC 32 % (32-36); MEAN CORPUSCULAR VOLUME 91 fL (79.0-98.0); MONOCYTES # (AUTO) 0.1 K/uL (0.0-1.0); MONOCYTES % (AUTO) 1.2 % (1.7-9.3); NEUTROPHILS # (AUTO) 11.8 K/uL (1.8-7.7); NEUTROPHILS % (AUTO) 97.8 % (40.0-70.0); PLATELET COUNT (AUTO) 215 K/uL (130-430); RED BLOOD CELL COUNT(AUTO) 3.08 MIL/uL (4.2-6.2); RED CELL DISTRIBUTION WIDTH 19.7 % (9.0-15.0); WHITE BLOOD COUNT (AUTO) 12.1 K/uL (4.8-10.8)
[2023-01-22] MEDS: MEROPENEM 1 GM in NS 100 ML IV SCH ×3 (05:03→22:21)
[2023-01-22] MEDS: methylPREDNISolone SOD SUCC/PF 62.5 MG/ML VIAL IVP SCH ×3 (05:07→22:21)
[2023-01-22 05:30] LABS: CREATININE 0.63 mg/dL (0.55-1.30); PHOSPHORUS 2.1 mg/dL (2.7-4.5)
[2023-01-22] MEDS: BUDESONIDE 0.5 MG/2 ML AMPUL.NEB INH SCH ×2 (07:42→19:00)
[2023-01-22] MEDS ORDERED: D5/0.45 NS 1,000 ML IV SCH (08:00)
[2023-01-22] MEDS: FAMOTIDINE 20 MG TABLET PO SCH ×2 (08:36→22:20)
[2023-01-22] MEDS: SILDENAFIL CITRATE 20 MG TABLET PO SCH ×3 (08:36→22:21)
[2023-01-22] MEDS: METOPROLOL TARTRATE 25 MG TABLET PO SCH ×2 (08:36→22:20)
[2023-01-22] MEDS: LACTOBACILLUS RHAMNOSUS GG 1 CAP CAPSULE PO SCH ×2 (08:36→21:00)
[2023-01-22] MEDS: MULTIVITS,CA,MINERALS/IRON/FA 1 TABLET PO SCH (08:36)
[2023-01-22] MEDS: CHOLECALCIFEROL (VITAMIN D3) 5,000 UNIT TABLET PO SCH (08:37)
[2023-01-22] MEDS: APIXABAN 2.5 MG TABLET PO SCH ×2 (08:37→22:19)
[2023-01-22] MEDS: ASPIRIN 81 MG TABLET(ECOTRIN) PO SCH (08:37)
[2023-01-22] MEDS: ASCORBIC ACID 500 MG TABLET PO SCH ×2 (08:37→22:21)
[2023-01-22] MEDS: MAGNESIUM OXIDE 400 MG TABLET PO SCH ×2 (08:38→21:00)
[2023-01-22] MEDS: MEGESTROL ACETATE 400 MG/10 ML UDC PO SCH (08:38)
[2023-01-22] MEDS: HONEY WOUND DRESSING 1 EACH TP SCH (08:38)
[2023-01-22] MEDS: BALSAM PERU/CASTOR OIL 56.7 GM OINT...G. TP SCH (08:39)
[2023-01-22] MEDS: levoFLOXacin 500 MG TABLET PO SCH (10:29)
[2023-01-22] MEDS ORDERED: NA PHOS 15 MM in NS 250 ML IV ONE (13:00)
[2023-01-22] MEDS: LORazepam 2 MG/ML VIAL IVP PRN (14:21)
[2023-01-22] MEDS ORDERED: DEXTROSE 50% JECT 50 ML DISP.SYRIN IVP PRN (17:30)
[2023-01-22] MEDS ORDERED: *TPN PER PHARMACY XX PRN (17:30)
[2023-01-22] MEDS: MIRTAZAPINE 15 MG TABLET PO SCH (17:48)
[2023-01-22] MEDS: EPOETIN ALFA-EPBX 4,000 UNITS/ML VIAL SUBCUT SCH (17:48)
[2023-01-22] MEDS: D5LR 1,000 ML IV SCH (20:53)
[2023-01-23] VITALS (24 sets, daily range): BP systolic 111–143
[2023-01-23] MEDS: LORazepam 2 MG/ML VIAL IVP PRN ×2 (02:03→17:53)
[2023-01-23] MEDS: INSULIN REGULAR, HUMAN 100 UNITS/ML, 3 ML VIAL (humuLIN R) SUBCUT PRN ×4 (02:05→17:39)
[2023-01-23 05:13] LABS: BASOPHILS % (AUTO) 0.2 % (0.0-2.0); HEMATOCRIT 27.4 % (36-48); HEMOGLOBIN 8.8 g/dL (12.0-16.0); LYMPHOCYTES # (AUTO) 0.1 K/uL (1.0-5.5); LYMPHOCYTES % (AUTO) 0.8 % (20.5-51.5); MEAN CORPUSCULAR HEMOGLOBIN 29 pg (27-31); MEAN CORPUSCULAR HGB CONC 32 % (32-36); MEAN CORPUSCULAR VOLUME 92 fL (79.0-98.0); MONOCYTES # (AUTO) 0.3 K/uL (0.0-1.0); MONOCYTES % (AUTO) 1.9 % (1.7-9.3); NEUTROPHILS # (AUTO) 13.8 K/uL (1.8-7.7); NEUTROPHILS % (AUTO) 97.1 % (40.0-70.0); PLATELET COUNT (AUTO) 200 K/uL (130-430); RED CELL DISTRIBUTION WIDTH 19.1 % (9.0-15.0); WHITE BLOOD COUNT (AUTO) 14.2 K/uL (4.8-10.8)
[2023-01-23] MEDS: methylPREDNISolone SOD SUCC/PF 62.5 MG/ML VIAL IVP SCH ×3 (05:54→22:11)
[2023-01-23] MEDS: MEROPENEM 1 GM in NS 100 ML IV SCH ×3 (05:54→22:10)
[2023-01-23 06:12] LABS: CREATININE 0.5 mg/dL (0.55-1.30); PHOSPHORUS 3.1 mg/dL (2.7-4.5); TOTAL BILIRUBIN 0.5 mg/dL (0.0-1.0)
[2023-01-23] MEDS: BUDESONIDE 0.5 MG/2 ML AMPUL.NEB INH SCH ×2 (07:36→19:00)
[2023-01-23] MEDS: ALBUTEROL MDI INHALATION 8 GM INH INH SCH ×5 (07:36→23:00)
[2023-01-23] MEDS: MEGESTROL ACETATE 400 MG/10 ML UDC PO SCH ×2 (08:43→09:00)
[2023-01-23] MEDS: ASPIRIN 81 MG TABLET(ECOTRIN) PO SCH ×2 (08:43→09:00)
[2023-01-23] MEDS: SILDENAFIL CITRATE 20 MG TABLET PO SCH ×4 (08:43→21:00)
[2023-01-23] MEDS: CHOLECALCIFEROL (VITAMIN D3) 5,000 UNIT TABLET PO SCH ×2 (08:43→09:00)
[2023-01-23] MEDS: MULTIVITS,CA,MINERALS/IRON/FA 1 TABLET PO SCH ×2 (08:43→09:00)
[2023-01-23] MEDS: METOPROLOL TARTRATE 25 MG TABLET PO SCH ×3 (08:44→21:00)
[2023-01-23] MEDS: FAMOTIDINE 20 MG TABLET PO SCH ×3 (08:44→21:00)
[2023-01-23] MEDS: APIXABAN 2.5 MG TABLET PO SCH ×2 (08:44→21:00)
[2023-01-23] MEDS: ASCORBIC ACID 500 MG TABLET PO SCH ×3 (08:44→21:00)
[2023-01-23] MEDS: LACTOBACILLUS RHAMNOSUS GG 1 CAP CAPSULE PO SCH ×3 (08:45→21:00)
[2023-01-23] MEDS: MAGNESIUM OXIDE 400 MG TABLET PO SCH ×3 (08:45→21:00)
[2023-01-23] MEDS: HONEY WOUND DRESSING 1 EACH TP SCH ×2 (08:46→11:09)
[2023-01-23] MEDS: BALSAM PERU/CASTOR OIL 56.7 GM OINT...G. TP SCH (08:46)
[2023-01-23] MEDS ORDERED: levoFLOXacin 500 MG TABLET PO SCH (10:00)
[2023-01-23] MEDS: D5LR 1,000 ML IV SCH (12:03)
[2023-01-23] MEDS: MIRTAZAPINE 15 MG TABLET PO SCH (17:08)
[2023-01-23] MEDS ORDERED: METOPROLOL TARTRATE 5 MG/5 ML VIAL ONE (20:35)
[2023-01-23] MEDS ORDERED: [UNRECOGNIZED DRUG - OTHER] IV SCH ×6 (21:00)
[2023-01-23] MEDS ORDERED: TPN CENTRAL IV SCH ×12 (21:00)
[2023-01-23] MEDS ORDERED: K PHOS IV SCH ×12 (21:00)
[2023-01-23] MEDS ORDERED: MVI IV SCH ×12 (21:00)
[2023-01-23] MEDS ORDERED: [UNRECOGNIZED DRUG - OTHER] IV SCH ×6 (21:00)
[2023-01-23] MEDS ORDERED: FAT EMULSIONS 250 ML IV SCH (21:00)
[2023-01-23] MEDS ORDERED: TRACE ELEMENTS IV SCH ×12 (21:00)
[2023-01-23] MEDS: METOPROLOL TARTRATE 5 MG/5 ML VIAL IVP PRN (21:02)
[2023-01-24] VITALS (11 sets, daily range): BP systolic 118–146
[2023-01-24] MEDS: INSULIN REGULAR, HUMAN 100 UNITS/ML, 3 ML VIAL (humuLIN R) SUBCUT PRN ×2 (00:46→05:09)
[2023-01-24] MEDS: ALBUTEROL MDI INHALATION 8 GM INH INH SCH ×2 (03:00→07:00)
[2023-01-24] MEDS: METOPROLOL TARTRATE 5 MG/5 ML VIAL IVP PRN (05:08)
[2023-01-24] MEDS: methylPREDNISolone SOD SUCC/PF 62.5 MG/ML VIAL IVP SCH (05:10)
[2023-01-24] MEDS: MEROPENEM 1 GM in NS 100 ML IV SCH (05:10)
[2023-01-24 05:56] LABS: BASOPHILS # (AUTO) 0.1 K/uL (0.0-0.2); BASOPHILS % (AUTO) 1.1 % (0.0-2.0); HEMATOCRIT 27.2 % (36-48); HEMOGLOBIN 8.8 g/dL (12.0-16.0); LYMPHOCYTES # (AUTO) 0.1 K/uL (1.0-5.5); LYMPHOCYTES % (AUTO) 0.8 % (20.5-51.5); MEAN CORPUSCULAR HEMOGLOBIN 30 pg (27-31); MEAN CORPUSCULAR HGB CONC 32 % (32-36); MEAN CORPUSCULAR VOLUME 94 fL (79.0-98.0); MONOCYTES # (AUTO) 0.2 K/uL (0.0-1.0); MONOCYTES % (AUTO) 1.4 % (1.7-9.3); NEUTROPHILS % (AUTO) 96.7 % (40.0-70.0); PLATELET COUNT (AUTO) 138 K/uL (130-430); RED CELL DISTRIBUTION WIDTH 19.6 % (9.0-15.0); WHITE BLOOD COUNT (AUTO) 12.5 K/uL (4.8-10.8)
[2023-01-24 06:45] LABS: CALCIUM 7.7 mg/dL (8.4-11.0); CREATININE 0.55 mg/dL (0.55-1.30); PHOSPHORUS 2.7 mg/dL (2.7-4.5); TOTAL BILIRUBIN 0.6 mg/dL (0.0-1.0)
[2023-01-24] MEDS: BUDESONIDE 0.5 MG/2 ML AMPUL.NEB INH SCH (07:50)
[2023-01-24] MEDS: IPRATROPIUM/ALBUTEROL SULFATE 3 ML AMPUL.NEB (DUONEB) INH PRN ×2 (07:50→10:47)
[2023-01-24] MEDS: BALSAM PERU/CASTOR OIL 56.7 GM OINT...G. TP SCH (08:53)
[2023-01-24] MEDS: HONEY WOUND DRESSING 1 EACH TP SCH (08:53)
[2023-01-24] MEDS: LORazepam 2 MG/ML VIAL IVP PRN (08:58)
[2023-01-24] MEDS: FAMOTIDINE 20 MG TABLET PO SCH (09:00)
[2023-01-24] MEDS: MEGESTROL ACETATE 400 MG/10 ML UDC PO SCH (09:00)
[2023-01-24] MEDS: MULTIVITS,CA,MINERALS/IRON/FA 1 TABLET PO SCH (09:00)
[2023-01-24] MEDS: ASCORBIC ACID 500 MG TABLET PO SCH (09:00)
[2023-01-24] MEDS: LACTOBACILLUS RHAMNOSUS GG 1 CAP CAPSULE PO SCH (09:00)
[2023-01-24] MEDS: SILDENAFIL CITRATE 20 MG TABLET PO SCH (09:00)
[2023-01-24] MEDS: APIXABAN 2.5 MG TABLET PO SCH (09:00)
[2023-01-24] MEDS: METOPROLOL TARTRATE 25 MG TABLET PO SCH (09:00)
[2023-01-24] MEDS: CHOLECALCIFEROL (VITAMIN D3) 5,000 UNIT TABLET PO SCH (09:00)
[2023-01-24] MEDS: ASPIRIN 81 MG TABLET(ECOTRIN) PO SCH (09:00)
[2023-01-24] MEDS ORDERED: INSULIN REGULAR IV SCH ×7 (21:00)
[2023-01-24] MEDS ORDERED: TPN CENTRAL IV SCH ×7 (21:00)
[2023-01-24] MEDS ORDERED: MVI IV SCH ×7 (21:00)
[2023-01-24] MEDS ORDERED: TRACE ELEMENTS IV SCH ×7 (21:00)
[2023-01-24] MEDS ORDERED: [UNRECOGNIZED DRUG - OTHER] IV SCH ×7 (21:00)
[2023-01-24] MEDS ORDERED: K PHOS IV SCH ×7 (21:00)
== END 2023-01-24 10:43 | DRG 871 ==
LOC: SED 16:01 → SIC 21:32 → STU 23:45 → SIC 01-05 23:35 → STU 01-08 21:26 → SIC 01-19 09:15
PROVIDERS: ADMIT Internal Medicine; ATTEND Internal Medicine
PROC: 5A0935A Assistance with Respiratory Ventilation, Less than 24 Consecutive Hours, High Flow/Velocity Cannula (ICD-10-PCS; 2023-01-05)
PROC: 5A09357 Assistance with Respiratory Ventilation, Less than 24 Consecutive Hours, Continuous Positive Airway Pressure (ICD-10-PCS; principal; 2023-01-06)
PROC: 5A0945A Assistance with Respiratory Ventilation, 24-96 Consecutive Hours, High Flow/Velocity Cannula (ICD-10-PCS; 2023-01-06)
PROC: XW033E5 Introduction of Remdesivir Anti-infective into Peripheral Vein, Percutaneous Approach, New Technology Group 5 (ICD-10-PCS; 2023-01-06)
PROC: XW0DXM6 Introduction of Baricitinib into Mouth and Pharynx, External Approach, New Technology Group 6 (ICD-10-PCS; 2023-01-06)
PROC: 5A09357 Assistance with Respiratory Ventilation, Less than 24 Consecutive Hours, Continuous Positive Airway Pressure (ICD-10-PCS; 2023-01-20)
PROC: 5A0935A Assistance with Respiratory Ventilation, Less than 24 Consecutive Hours, High Flow/Velocity Cannula (ICD-10-PCS; 2023-01-21)
PROC: 5A09357 Assistance with Respiratory Ventilation, Less than 24 Consecutive Hours, Continuous Positive Airway Pressure (ICD-10-PCS; 2023-01-22)
PROC: 5A0935A Assistance with Respiratory Ventilation, Less than 24 Consecutive Hours, High Flow/Velocity Cannula (ICD-10-PCS; 2023-01-22)
PROC: 5A09357 Assistance with Respiratory Ventilation, Less than 24 Consecutive Hours, Continuous Positive Airway Pressure (ICD-10-PCS; 2023-01-23)
PROC: 5A09357 Assistance with Respiratory Ventilation, Less than 24 Consecutive Hours, Continuous Positive Airway Pressure (ICD-10-PCS; 2023-01-24)
DX: A41.9 Sepsis, unspecified organism (principal); E43 Unspecified severe protein-calorie malnutrition; I21.A1 Myocardial infarction type 2; J12.82 Pneumonia due to coronavirus disease 2019; U07.1 COVID-19; J96.21 Acute and chronic respiratory failure with hypoxia; I10 Essential (primary) hypertension; M35.00 Sjogren syndrome, unspecified; J84.10 Pulmonary fibrosis, unspecified; I27.81 Cor pulmonale (chronic); D63.8 Anemia in other chronic diseases classified elsewhere; I27.20 Pulmonary hypertension, unspecified; I46.9 Cardiac arrest, cause unspecified; Y92.89 Other specified places as the place of occurrence of the external cause; T38.0X5A Adverse effect of glucocorticoids and synthetic analogues, initial encounter; F43.23 Adjustment disorder with mixed anxiety and depressed mood; Z90.710 Acquired absence of both cervix and uterus; Z86.711 Personal history of pulmonary embolism; Z79.899 Other long term (current) drug therapy; Z68.20 Body mass index [BMI] 20.0-20.9, adult
CPT/HCPCS: 36415; 36600; 71045; 71250-TC; 76376; 80048; 80053; 80061; 80202; 81000; 81003; 82607; 82803-TC; 82962; 83540; 83550; 83605; 83735; 83880; 84100; 84443; 84484; 85025; 85379; 85610-TC; 85730-TC; 86140; 87040; 87070-TC; 87081; 87205-TC; 93005; 93306; 93970; 94010; 94640; 94660; 94664; 94760; 96365; 97110-GP; 97116-GP; 97530-GP; 99291; G0378; J0456; J0692; J1030; J1100; J1650; J1940; J2060; J2185; J2543; J2930; J3370; J3490; J7050; J7060; J7512; J7613; J7626; Q5106; Q9967